=== PATIENT | male | born 1950 | race Caucasian/White ===

== ENCOUNTER 2017-03-10 19:37 | Emergency (ER) | payer MEDICARE ==
[~2017-03-10] VITALS: Ht 177.8 cm; Wt 99.6 kg
[2017-03-10 19:52] VITALS: BP 186/86; PULSE 77; RESP 16; TEMP 99; O2SAT 77; O2SAT 98
[2017-03-10] MEDS ORDERED: PRAV40TA2 PO (20:02)
[2017-03-10] MEDS ORDERED: SERT-129 PO (20:02)
[2017-03-10] MEDS ORDERED: VANC1000P IV (20:02)
[2017-03-10] MEDS ORDERED: CEFT1INJ2 IV (20:02)
[2017-03-10] MEDS ORDERED: ADDE20 PO (20:02)
--- NOTE | 2017-03-10 20:16 | PD ---
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 He was sent to the emergency department to have x-ray showing that the PICC line is still in good position and to redress the wound. The patient states he did not pull the PICC line out and he is unaware that the PICC line was pulled out or dislodged. He uses a PICC line to treat an infection in the shoulder with vancomycin and Rocephin. He is not on any anticoagulants. He denies any melanotic or bloody stools, hemoptysis, easy bruising or bleeding from any other site. PFSH Past Medical History ADD: Yes Depression: Yes High Cholesterol: Yes Diminished Hearing: No Influenza Vaccination: No ?: Not Past Surgical History Neurologic Surgery: Yes (synovial cyst removed from back) Social History Alcohol Use: No Tobacco Use: No Substance Use: No Allergies-Medications (Allergen,Severity, Reaction): Coded Allergies: Penicillins (Verified Allergy, Unknown, 03/10/17) Reported Meds & Prescriptions Reported Meds & Active Scripts Active Reported Ceftriaxone Inj (Ceftriaxone Sodium/Dextrose) 1 Gm/50 Ml Bagp 1 Gm IV Q24H Vancomycin Inj (Vancomycin HCl) 1 Gram Inj 1,000 Mg IV Q12HR Pravastatin 40 Mg Tab 40 Mg PO DAILY Sertraline (Sertraline HCl) 100 Mg Tab 100 Mg PO DAILY Adderall (Amphetamine-Dextroamphetamine) 20 Mg Tab 20 Mg PO DAILY Avoid late evening doses. Space doses at least 4 to 6 hours if more than once/day dosing. Review of Systems Except as stated in HPI: all other systems reviewed are Neg Physical Exam Narrative GENERAL: The patient is alert, oriented 3 in no apparent distress. His vital signs show blood pressure 186/86 but are otherwise normal. SKIN: Focused skin assessment warm/dry. There is a tiny amount of blood at the PICC line site, no active bleeding is noted. The PICC line does not appear to be dislodged. HEAD: Atraumatic. Normocephalic. EYES: Pupils equal and round. No scleral icterus. No injection or drainage. ENT: No nasal bleeding or discharge. Mucous membranes pink and moist. NECK: Trachea midline. No JVD. CARDIOVASCULAR: Regular rate and rhythm. No murmur appreciated. RESPIRATORY: No accessory muscle use. Clear to auscultation. Breath sounds equal bilaterally. GASTROINTESTINAL: Abdomen soft, non-tender, nondistended. Hepatic and splenic margins not palpable. MUSCULOSKELETAL: No obvious deformities. No clubbing. No cyanosis. No edema. NEUROLOGICAL: Awake and alert. No obvious cranial nerve deficits. Motor grossly within normal limits. Normal speech. PSYCHIATRIC: Appropriate mood and affect; insight and judgment normal. Data Data Last Documented VS Vital Signs Date Time Temp Pulse Resp B/P (MAP) Pulse Ox O2 Delivery O2 Flow Rate FiO2 03/10/17 19:52 99.0 77 16 186/86 (119) 98 Orders Orders Chest, Pa & Lat (03/10/17 20:09) Wound Care (03/10/17 20:12) MDM Medical Decision Making Medical Screen Exam Complete: Yes Emergency Medical Condition: Yes Medical Record Reviewed: Yes Interpretation(s) The PIC line is in the appropriate physician, at the tip of the superior vena cava. Differential Diagnosis Dislodged PICC line, skin bleeding-resolved, coagulopathy-unlikely Narrative Course The PICC line has not been dislodged in the bleeding is stopped. We are redressing the wound on discharging the patient. He should follow-up with his primary care physician if he has any problems. He is given a copy of the radiologist interpretation of the chest x-ray. Diagnosis Primary Impression: Bleeding from PICC line Additional Instructions: Follow-up with her primary care physician if you have any problems. There has been no dislodgment of the PICC line. Med/Other Pt SpecificInfo: No Change to Meds Disposition: 01 DISCHARGE HOME Condition: Stable Wyatt Avilez MD Mar 10, 2017 20:16
--- NOTE | 2017-03-10 20:31 | RADRPT ---
EXAM DATE/TIME: 03/10/2017 20:13 [facility] COMPARISON: No previous studies available for comparison. INDICATIONS : PICC line placement. MEDICAL HISTORY : None. SURGICAL HISTORY : Left shoulder surgery. ENCOUNTER: Initial ACUITY: 1 day PAIN SCORE: 0/10 LOCATION: Bilateral chest FINDINGS: PA and lateral views of the chest demonstrate a normal-sized cardiac silhouette. There is no effusion , consolidation, or pneumothorax. The bones and soft tissues demonstrate no acute abnormality. Right upper extremity PICC distal tip is in the superior vena cava. There has been prior reversal of should er arthroplasty. CONCLUSION: Right upper extremity PICC in appropriate position with distal tip in the superior vena cava. Rancho Lund MD on March 10, 2017 at 20:27 Board Certified Radiologist. This report was verified electronically.
== END 2017-03-10 20:49 | disposition home or self-care (01) ==
LOC: PHED 19:37
DX: T82.838A Hemorrhage due to vascular prosthetic devices, implants and grafts, initial encounter (principal); E78.00 Pure hypercholesterolemia, unspecified
CPT/HCPCS: 71020; 99283